=== PATIENT | male | born 1935 | race Caucasian/White ===

== ENCOUNTER → 2018-09-15 | Outpatient (CLI) | payer MEDICARE, OTHER ==
[~2018-09-15] MED LIST: ASPIRIN325 PO; FELODIPINE 5 MG5 M1 PO; HYDROCODONE-AP1 EAC6 PO; HYTRIN 5 M5 MG/1 CAP PO; LIPITOR 10 MG10 M1 PO; NEXIUM 40 MG CA40 M1 PO; OMEPRAZOLE40 MG PO; OXYCODONE HCL 55 MG PO; TYLENOL325 MG PO; ULTRACET TABLE1 EACH PO; XARELTO10 MG PO
== END ==
LOC: M.RAD 13:18
DX: S82.54XA Nondisplaced fracture of medial malleolus of right tibia, initial encounter for closed fracture (principal); M19.071 Primary osteoarthritis, right ankle and foot; M77.31 Calcaneal spur, right foot; X58.XXXA Exposure to other specified factors, initial encounter; Y93.89 Activity, other specified; Y92.89 Other specified places as the place of occurrence of the external cause; Y99.8 Other external cause status

== ENCOUNTER 2021-08-17 01:22 | Emergency (ER) | payer MEDICARE, OTHER ==
[~2021-08-17] VITALS: Ht 180.3 cm; Wt 83.0 kg
[2021-08-17 04:30] VITALS: BP 155/87
== END 2021-08-17 04:30 | disposition home or self-care (01) ==
LOC: M.ERS 01:22
DX: S01.01XA Laceration without foreign body of scalp, initial encounter (principal); I10 Essential (primary) hypertension; Z79.899 Other long term (current) drug therapy; W19.XXXA Unspecified fall, initial encounter; Y93.89 Activity, other specified; Y92.89 Other specified places as the place of occurrence of the external cause; Y99.8 Other external cause status